=== PATIENT | female | born 1990 | race Caucasian/White ===

== ENCOUNTER → 2016-10-17 | Outpatient (CLI) | payer OTHER ==
[~2016-10-17] MED LIST: /MOM400 PO; ACET50TA PO; COLA100C PO; IBUP600T26 PO; METH0.2T53 PO; OXYC1TAB23 PO; PRENTAB66 PO
[2016-10-17 13:32] LABS: BASO % 0.4 % (0.0-1.0); EOS # 0.2 K/mm3 (0.0-0.50); EOS % 3.1 % (0.0-3.0); LARGE UNSTAINED CELL # 0.1 K/mm3 (0.0-0.4); LARGE UNSTAINED CELL % 1.1 % (0.0-4.0); LYMPH # 1.5 K/mm3 (1.5-6.5); LYMPH % 17.3 % (24.0-44.0); MEAN CORPUSCULAR HEMOGLOBIN 30.4 pg (27.0-33.0); MEAN CORPUSCULAR HGB CONC 33.4 g/dl (32.0-36.5); MEAN CORPUSCULAR VOLUME 90.9 fl (80.0-96.0); MONO # 0.3 K/mm3 (0.0-0.8); MONO % 4.1 % (0.0-5.0); NEUTROPHILS # 6.1 K/mm3 (1.8-7.7); PLATELET COUNT, AUTOMATED 255 k/mm3 (150-450); RED CELL DISTRIBUTION WIDTH 13.2 % (11.5-14.5); WHITE BLOOD COUNT 8.2 K/mm3 (4.0-10.0)
[2016-10-17 14:17] LABS: HBsAg Prenatal NEGATIVE (NEGATIVE)
[2016-10-17 14:46] LABS: HIV SCREEN CENTAUR NEGATIVE (NEGATIVE)
== END ==
LOC: M SMT 10:39
PROVIDERS: ATTEND Advanced Practice Midwife
DX: Z34.81 Encounter for supervision of other normal pregnancy, first trimester (principal)

== ENCOUNTER → 2016-11-14 | Outpatient (REF) | payer OTHER ==
[~2016-11-14] MED LIST changes: +AUGM875T27 PO; -COLA100C PO; +COLA100C3 PO; +PREN1TAB11 PO
== END ==
LOC: M LAB REF 13:02
PROVIDERS: ATTEND Advanced Practice Midwife
DX: Z34.82 Encounter for supervision of other normal pregnancy, second trimester (principal); Z36 Encounter for antenatal screening of mother; Z3A.00 Weeks of gestation of pregnancy not specified

== ENCOUNTER 2016-11-17 12:39 | Emergency (ER) | payer OTHER ==
[~2016-11-17] VITALS: Ht 177.8 cm; Wt 74.4 kg
[~2016-11-17 12:39] MED LIST changes: -AUGM875T27 PO; -PREN1TAB11 PO
[2016-11-17 12:40] VITALS: BP 121/69
[2016-11-17] MEDS ORDERED: PREN1TAB11 PO (12:49)
[2016-11-17] MEDS ORDERED: ADACEL/BOOSTRIX VACCINE (DIPHTH/PERTUSS/ACELL/TETANUS)0.5ML SYR (90715) IM ONE (13:15)
[2016-11-17] MEDS ORDERED: AUGM875T27 PO (13:24)
== END 2016-11-17 13:30 | disposition home or self-care (01) ==
LOC: M ED 13:16
DX: S61.215A Laceration without foreign body of left ring finger without damage to nail, initial encounter (principal); W45.8XXA Other foreign body or object entering through skin, initial encounter; Y92.89 Other specified places as the place of occurrence of the external cause; Y93.G1 Activity, food preparation and clean up; Y99.0 Civilian activity done for income or pay; O99.332 Smoking (tobacco) complicating pregnancy, second trimester; Z3A.15 15 weeks gestation of pregnancy

== ENCOUNTER → 2016-12-10 | Outpatient (CLI) | payer OTHER ==
[~2016-12-10] MED LIST changes: +AUGM875T27 PO; +PREN1TAB11 PO
--- NOTE | 2016-12-10 10:11 | REP ---
Clinical: Anatomical evaluation. Comparison: None . Findings: Examination demonstrates a single live intrauterine in breech presentation. motion is identified by technologist. Placenta is noted posteriorly and grade zero without evidence for placenta previa or abruption. Amniotic fluid volume is normal. Cervix measures the 3.8 cm in length and appears closed. No evidence for nuchal cord. Single image demonstrates a small septation or synechia along the anterior margin of the uterus. Gestational age by current measurements 18 weeks 1 day with OG 05/12/2017. FHR equals 153 beats per minute. BPD 4.1 cm 18 weeks 3 days HC 15.2 cm 18 weeks 1 day AC 12.9 cm 18 weeks 3 days FL 2.7 cm 18 weeks 1 day HL 2.6 cm 18 weeks 2 days HC/AC ratio 1.18 Estimated weight 233 grams ( 50th percentile). Anatomical assessment demonstrates normal structures including cranium, choroid plexus, cavum, cerebellum/posterior fossa, facial features, lungs, four-chamber heart/ventricular outflow tracts, diaphragm, stomach, cord insertion/three-vessel cord, kidneys/bladder, spine, and extremities. Impression: 1. Single live intrauterine in breech presentation. 2. A thin septation or synechia along the anterior margin of the uterus is identified and may warrant reevaluation. 3. Anatomical assessment is complete and normal. Signed by Chaim Alfaro MD 12/10/2016 10:03 A
== END ==
LOC: M SMT 08:57
PROVIDERS: ATTEND Advanced Practice Midwife
DX: O32.1XX0 Maternal care for breech presentation, not applicable or unspecified (principal); Z36 Encounter for antenatal screening of mother; Z3A.18 18 weeks gestation of pregnancy; N85.6 Intrauterine synechiae; O26.892 Other specified pregnancy related conditions, second trimester

== ENCOUNTER → 2017-01-14 | Outpatient (CLI) | payer OTHER ==
[2017-01-14 13:29] LABS: BASO # 0.1 K/mm3 (0.0-0.2); BASO % 0.7 % (0.0-1.0); EOS # 0.4 K/mm3 (0.0-0.50); EOS % 4.2 % (0.0-3.0); LARGE UNSTAINED CELL # 0.1 K/mm3 (0.0-0.4); LARGE UNSTAINED CELL % 0.8 % (0.0-4.0); LYMPH # 1.6 K/mm3 (1.5-6.5); LYMPH % 15.6 % (24.0-44.0); MEAN CORPUSCULAR HEMOGLOBIN 31.6 pg (27.0-33.0); MEAN CORPUSCULAR HGB CONC 33.7 g/dl (32.0-36.5); MEAN CORPUSCULAR VOLUME 93.9 fl (80.0-96.0); MONO # 0.4 K/mm3 (0.0-0.8); MONO % 4.5 % (0.0-5.0); NEUTROPHILS # 7.1 K/mm3 (1.8-7.7); NEUTROPHILS % 74.2 % (36.0-66.0); PLATELET COUNT, AUTOMATED 225 k/mm3 (150-450); RED CELL DISTRIBUTION WIDTH 12.6 % (11.5-14.5); WHITE BLOOD COUNT 9.6 K/mm3 (4.0-10.0)
[2017-01-14 15:11] LABS: THYROXINE (T4) 14.5 UG/DL (4.5-12.0)
== END ==
LOC: M SMT 09:00
PROVIDERS: ATTEND Advanced Practice Midwife
DX: R53.83 Other fatigue (principal)

== ENCOUNTER → 2017-02-12 | Outpatient (CLI) | payer OTHER ==
[~2017-02-12] MED LIST changes: -AUGM875T27 PO; +AUGM875T28 PO; -COLA100C3 PO; +COLA100C5 PO; +IBUP-1022 PO; +PERC5TAB12 PO
[2017-02-12 13:15] LABS: MEAN CORPUSCULAR HEMOGLOBIN 31.1 pg (27.0-33.0); MEAN CORPUSCULAR HGB CONC 33.5 g/dl (32.0-36.5); MEAN CORPUSCULAR VOLUME 92.8 fl (80.0-96.0); RED CELL DISTRIBUTION WIDTH 12.6 % (11.5-14.5); WHITE BLOOD COUNT 9.5 K/mm3 (4.0-10.0)
== END ==
LOC: M SMT 08:39
PROVIDERS: ATTEND Advanced Practice Midwife
DX: Z34.82 Encounter for supervision of other normal pregnancy, second trimester (principal); Z36 Encounter for antenatal screening of mother; Z3A.00 Weeks of gestation of pregnancy not specified

== ENCOUNTER → 2017-04-10 | Outpatient (REF) | payer OTHER | LOC: M LAB REF 13:07 | PROVIDERS: ATTEND Advanced Practice Midwife | DX: Z34.83 Encounter for supervision of other normal pregnancy, third trimester (principal); Z36 Encounter for antenatal screening of mother; Z3A.00 Weeks of gestation of pregnancy not specified ==

== ENCOUNTER → 2017-04-17 | Outpatient (REF) | payer OTHER | LOC: M LAB REF 12:40 | PROVIDERS: ATTEND Advanced Practice Midwife | DX: Z34.83 Encounter for supervision of other normal pregnancy, third trimester (principal); Z36 Encounter for antenatal screening of mother; Z3A.00 Weeks of gestation of pregnancy not specified ==

== ENCOUNTER 2017-04-22 20:24 | Emergency (ER) | payer OTHER ==
[~2017-04-22] VITALS: Ht 177.8 cm; Wt 90.9 kg
[~2017-04-22 20:24] MED LIST changes: -PERC5TAB12 PO
[2017-04-22] MEDS ORDERED: PERCOCET 5MG/325MG TAB PO ONE (21:30)
[2017-04-22] MEDS ORDERED: OXYCODONE/APAP 5MG/325MG(BULK FOR ED) 1 TABLET PO ONE (23:00)
[2017-04-22] MEDS ORDERED: PERC5TAB12 PO (23:02)
[2017-04-22 23:24] VITALS: BP 139/74
== END 2017-04-22 23:25 | disposition home or self-care (01) ==
LOC: M ED 20:24
DX: T23.291A Burn of second degree of multiple sites of right wrist and hand, initial encounter (principal); T31.0 Burns involving less than 10% of body surface; X10.2XXA Contact with fats and cooking oils, initial encounter; Y92.89 Other specified places as the place of occurrence of the external cause; Y93.89 Activity, other specified; Y99.8 Other external cause status; F17.210 Nicotine dependence, cigarettes, uncomplicated; Z79.2 Long term (current) use of antibiotics

== ENCOUNTER 2017-05-01 11:01 | Inpatient (IN) | payer OTHER ==
[2017-05-01] VITALS (9 sets, daily range): BP systolic 124–141; BP diastolic 59–97
[~2017-05-01] VITALS: Ht 177.8 cm; Wt 90.1 kg
[~2017-05-01 11:01] MED LIST changes: +PERC5TAB12 PO
[2017-05-01] MEDS ORDERED: BUTORPHANOL 2 MG/ML INJ (J0595) IV ONE (12:15)
[2017-05-01] MEDS ORDERED: PROMETHAZINE INJ 25 MG/ML VIAL (J2550) IV ONE (12:15)
[2017-05-01] MEDS ORDERED: OXYTOCIN 30 UNITS IN 0.9% NaCl 500ML IV BAG (J2590) As Ordered ONE (12:21)
--- NOTE | 2017-05-01 12:28 | HPE ---
DATE OF ADMISSION: 05/01/2017 Elena is a 27-year-old, 4, para 2-0-1-2, at 38-5/7 weeks gestation with an expected date of confinement (EDC) of 05/10/2017 based on first trimester ultrasound. She presents to labor and delivery today with onset of uncomfortable contractions that are about every 2-3 minutes. She does report bloody show. Denies leakage of fluid. Fetus has been active. care was initiated at [facility] in the second trimester. course complicated by tobacco use during and amniotic band noted at some point in an ultrasound was normal anatomy scan. OBSTETRIC HISTORY: May 2011 at 41 weeks gestation, spontaneous vaginal delivery of a 7 pound 2 ounce male. June 2012 at 39 weeks gestation, normal spontaneous vaginal delivery for a 7 pound 13 ounce male. April 2016, at 6 weeks, spontaneous . OB LABS: Blood type A postive. Antibody screen negative. Rubella immune. VDRL nonreactive. Urine culture positive for Staph epididymis. Hepatitis B surface antigen negative. HIV negative. Hepatitis C antibody nonreactive. Gonorrhea and chlamydia negative. She declined genetic serum screening markers. Gestational diabetic screening 112. GBS is negative. Followup urine cultures demonstrated no growth. PAST MEDICAL HISTORY: 1. Abnormal Pap smear. 2. Varicose veins. SURGERIES: None. FAMILY HISTORY: Hypertension. SOCIAL HISTORY: The patient is single. Father of the baby is at bedside and supportive. She is a smoker, reports smoking three cigarettes a day. Denies alcohol and drug use. No history of any sexually transmitted infections. ALLERGIES: No known drug allergies. CURRENT MEDICATIONS: Include vitamin. OBJECTIVE: Temperature 98.6, pulse 94, respirations 18, blood pressure (BP) 131/81. heart rate is 140 with moderate variability, positive accelerations, positive occasional variable deceleration, bryce every 2-3 minutes. They palpate strong. Sterile vaginal exam performed by Ann Bentley RN: 3 cm dilated, 90% effaced, station not reported, bulging bag of water. Abdomen is gravid. Estimated weight 7-1/2 to 8 pounds. Cephalic presentation. ASSESSMENT: Intrauterine at 38-5/7 weeks. heart rate category II. Active labor. PLAN: Admit the patient to labor and delivery. The patient has requested IV pain medication to cope with her labor. Labs as ordered. Out of bed ad verena. I do anticipate a spontaneous vaginal delivery. MTDD
[2017-05-01 12:59] LABS: MEAN CORPUSCULAR HEMOGLOBIN 27.5 pg (27.0-33.0); MEAN CORPUSCULAR VOLUME 83.3 fl (80.0-96.0); RED CELL DISTRIBUTION WIDTH 13.6 % (11.5-14.5); WHITE BLOOD COUNT 14.5 10^3/uL (4.0-10.0)
[2017-05-01] MEDS ORDERED: OXYTOCIN DRIP 30 UNITS in APPROPRIATE DILUENT 1 EA IV SCH (13:23)
[2017-05-01] MEDS ORDERED: MEASLES,MUMPS,RUBELLA VACCINE INJ (MMR-II) (90707) SC SCH (13:30)
[2017-05-01] MEDS ORDERED: ACETAMINOPHEN 500 MG TAB PO PRN (13:30)
[2017-05-01] MEDS ORDERED: DIBUCAINE 1% OINTMENT 30GM TOP PRN (13:30)
[2017-05-01] MEDS ORDERED: RHOGAM 300 MCG (1500 IU) INJ (J2790) IM SCH (13:30)
[2017-05-01] MEDS ORDERED: DOCUSATE SODIUM 100 MG CAP PO PRN (13:30)
[2017-05-01] MEDS ORDERED: METHYLERGONOVINE MALEATE 0.2 MG TAB PO PRN (13:30)
--- NOTE | 2017-05-01 13:54 | DN ---
DATE: 05/01/2017 Elena is a 27-year-old, 4, para 3-0-1-3 now, who was admitted to labor and delivery in active labor. She progressed rapidly through her labor. She coped with her labor physiologically. She had assisted rupture of membranes at 1222 for a moderate amount of meconium stained fluid. She progressed to full dilation at 1239. She pushed to a normal spontaneous vaginal delivery of a live female infant in left occiput anterior (BURTON) position with restitution to left occiput transverse (LOT) position at 1246. There was a nuchal cord times one loose that was reduced manually at the time of delivery. Shoulders delivered with gentle downward traction and the corpus spontaneously followed. The was placed on the maternal abdomen. Mouth and nares were bulb suctioned. The cord was clamped times two and cut by the father of the baby. [employer] Installer, Dr. Lyon, arrived to the room for evaluation of the due to meconium stained fluid. The was taken to the warmer for evaluation. Cord blood was obtained. A spontaneous expulsion of an intact placenta with three-vessel cord by Isaac mechanism was at 1253. Uterine hemostasis achieved with IV Pitocin rapid infusion and uterine fundal massage. Estimated blood loss 300 mL. Perineum and vagina were inspected and noted to have bilateral labial lacerations. The left labial laceration was repaired with one interrupted suture with #3-0 Rapide. The female weighed 6 pounds 9 ounces, 2980 grams, 9 and 9. Mom plans to bottle feed the infant. The family have named their daughter, Em. This delivery was performed by Joselyn Elizondo, student nurse cook larder, under my direct supervision. At the close of delivery, lap counts, needle counts and instrument counts were correct and verified.
[2017-05-01] MEDS: IBUPROFEN 800 MG TAB PO PRN ×2 (14:26→23:26)
[2017-05-02 05:59] VITALS: BP 118/56
[2017-05-02] MEDS ORDERED: PRENATAL VITAMINS CHEWABLE TABLET PO SCH (09:00)
[2017-05-02 09:56] VITALS: BP 121/58
== END 2017-05-02 16:45 | disposition home or self-care (01) | DRG 560 ==
LOC: M LDO 11:01 → M LDI 11:29 → M OBS 15:01
PROVIDERS: ADMIT Advanced Practice Midwife; ATTEND Advanced Practice Midwife
PROC: 10E0XZZ Delivery of Products of Conception, External Approach (ICD-10-PCS; principal; 2017-05-01)
PROC: 0HQ9XZZ Repair Perineum Skin, External Approach (ICD-10-PCS; 2017-05-01)
PROC: 10907ZC Drainage of Amniotic Fluid, Therapeutic from Products of Conception, Via Natural or Artificial Opening (ICD-10-PCS; 2017-05-01)
DX: O62.3 Precipitate labor (principal); Z3A.38 38 weeks gestation of pregnancy; O77.0 Labor and delivery complicated by meconium in amniotic fluid; F17.210 Nicotine dependence, cigarettes, uncomplicated; O69.81X0 Labor and delivery complicated by cord around neck, without compression, not applicable or unspecified; O70.0 First degree perineal laceration during delivery; Z37.0 Single live birth; O99.334 Smoking (tobacco) complicating childbirth

== ENCOUNTER → 2017-06-11 | Outpatient (REF) | payer OTHER | LOC: M LAB REF 21:24 | PROVIDERS: ATTEND Physician Assistant Medical | DX: R30.0 Dysuria (principal) ==

== ENCOUNTER → 2019-09-16 | Outpatient (REF) | payer OTHER ==
[~2019-09-16] MED LIST changes: -/MOM400 PO; -ACET50TA PO; +MAPA500T17 PO; +MILK10SU PO
[2019-09-16 12:43] LABS: INFLUENZA A AMPLIFICATION NEGATIVE (NEGATIVE); INFLUENZA B AMPLIFICATION NEGATIVE (NEGATIVE)
== END ==
LOC: M LAB REF 11:07
PROVIDERS: ATTEND Physician Assistant
DX: J11.1 Influenza due to unidentified influenza virus with other respiratory manifestations (principal)

== ENCOUNTER → 2020-03-18 | Outpatient (REF) | payer OTHER ==
[~2020-03-18] MED LIST changes: +CEFD1CAP8; +CLEO300C2 PO; +LORT1ELX PO; +PRED20TA; +PRED20TA PO
== END ==
LOC: M LAB REF 13:17
PROVIDERS: ATTEND Physician Assistant
DX: J03.90 Acute tonsillitis, unspecified (principal)

== ENCOUNTER 2020-03-22 09:32 | Emergency (ER) | payer OTHER ==
[~2020-03-22] VITALS: Ht 177.8 cm; Wt 89.0 kg
[~2020-03-22 09:32] MED LIST changes: -CEFD1CAP8; -CLEO300C2 PO; -LORT1ELX PO; -PRED20TA; -PRED20TA PO
[2020-03-22] MEDS ORDERED: CEFD1CAP8 (09:42)
[2020-03-22] MEDS ORDERED: PRED20TA (09:42)
[2020-03-22] MEDS ORDERED: NS 1,000 ML IV ONE (10:00)
[2020-03-22] MEDS ORDERED: CLINDAMYCIN 900 MG in IV 1 EA IV ONE (10:00)
[2020-03-22] MEDS ORDERED: MORPHINE 4 MG/ML 1ML VIAL/SYRINGE (J2270) IV ONE (10:00)
[2020-03-22 10:33] LABS: BASO # 0.1 10^3/uL (0.0-0.2); BASO % 0.4 % (0.0-1.0); EOS # 0.1 10^3/uL (0.0-0.5); EOS % 0.5 % (0.0-3.0); HEMATOCRIT 39.1 % (36.0-47.0); LYMPH # 1.7 10^3/uL (1.5-5.0); LYMPH % 13.7 % (24.0-44.0); MEAN CORPUSCULAR HEMOGLOBIN 29.8 pg (27.0-33.0); MEAN CORPUSCULAR HGB CONC 33.2 g/dl (32.0-36.5); MEAN CORPUSCULAR VOLUME 89.7 fl (80.0-96.0); MONO % 8.2 % (0.0-5.0); NEUTROPHILS # 9.2 10^3/uL (1.5-8.5); NEUTROPHILS % 76.6 % (36.0-66.0); PLATELET COUNT, AUTOMATED 273 10^3/uL (150-450); RED BLOOD COUNT 4.36 10^6/uL (4.00-5.40)
[2020-03-22 11:05] LABS: HCG, SERUM QUALITATIVE NEGATIVE (NEGATIVE)
[2020-03-22] MEDS ORDERED: ISOVUE-370 76% 100ML VIAL As Ordered ONE (11:10)
[2020-03-22] MEDS ORDERED: KETOROLAC 30 MG/ML 1ML VIAL IV ONE (11:15)
[2020-03-22] MEDS ORDERED: methylPREDNISolone 125MG 2ML VIAL IV ONE (11:30)
[2020-03-22] MEDS ORDERED: CETACAINE SPRAY 5GM TOP ONE (13:15)
[2020-03-22] MEDS ORDERED: LIDOCAINE W/EPINEPHRINE 1% 20ML VIAL SC ONE (13:15)
[2020-03-22] MEDS ORDERED: LORT1ELX PO (14:56)
[2020-03-22] MEDS ORDERED: PRED20TA PO (14:56)
[2020-03-22] MEDS ORDERED: CLEO300C2 PO (14:56)
[2020-03-22 15:00] VITALS: BP 126/68
--- NOTE | 2020-04-19 14:28 | REP ---
CONTRAST ENHANCED CT OF THE NECK CLINICAL: Sore throat and right-sided pain. TECHNIQUE: Axial images from the skull base to the thoracic inlet with coronal and sagittal reformations using 100 cc Isovue-370 intravenous contrast material. FINDINGS: There is a 3.5 cm tonsillar/right parapharyngeal abscess along with associated bilateral tonsillar and adenoid inflammatory changes and enlargement with moderate bilateral adenopathy. The swelling and abscess focally causes focal mass effect and narrowing to the adjacent portion of the airway (images 25-43). Vascular structures are symmetric, intact, and normal. The osseous structures are intact and normal. Visualized sinuses demonstrate mucoperiosteal changes suggesting chronic sinus disease involving the maxillary and ethmoid sinuses. Bilateral orbits are symmetric and normal. IMPRESSION: Infectious/inflammatory process including right tonsillar/right parapharyngeal abscess and diffuse bilateral inflammatory adenopathy. Abscess and inflammatory changes cause mass effect on the adjacent soft tissues and focal narrowing to the airway. Findings discussed with Dr. Edmond in the ER. JOY
== END 2020-03-22 15:25 | disposition home or self-care (01) ==
LOC: M ED 09:32
DX: J36 Peritonsillar abscess (principal)
CPT/HCPCS: 42700; 70491; 80047; 84702; 84703; 85025; 86140; 86850; 86900; 86901; 94760; 96365; 96366; 96375; 99284; J1885; J2270; J2930; Q9967

== ENCOUNTER → 2020-04-10 | Outpatient (CLI) | payer OTHER ==
[~2020-04-10] MED LIST changes: +CEFD1CAP8; +CLEO300C2 PO; +LORT1ELX PO; +PRED20TA; +PRED20TA PO
--- NOTE | 2020-04-21 09:34 | REP ---
RIGHT ANKLE SERIES: 4-VIEWS HISTORY: Lateral ankle injury. FINDINGS: Four views of the right ankle demonstrate lateral soft tissue swelling. Ankle mortise is intact. No fracture is visible. Bones, joints, and soft tissues are otherwise unremarkable. IMPRESSION: Lateral soft tissue swelling. No fracture seen. MTDD
== END ==
LOC: M WUC 10:33
PROVIDERS: ATTEND Physician Assistant
DX: M25.571 Pain in right ankle and joints of right foot (principal)

== ENCOUNTER → 2020-04-18 | Outpatient (REF) | payer OTHER, MEDICAID ==
[2020-04-18 13:19] LABS: APPEARANCE, URINE CLEAR (CLEAR); BACTERIA, URINE AUTO NEGATIVE (NEGATIVE); BILIRUBIN, URINE AUTO NEGATIVE (NEGATIVE); BLOOD, URINE BLOOD 1+ (NEGATIVE); COLOR, URINE YELLOW (YELLOW); GLUCOSE, URINE (UA) AUTO NEGATIVE (NEGATIVE); KETONE, URINE AUTO NEGATIVE (NEGATIVE); LEUKOCYTE ESTERASE, URINE AUTO NEGATIVE (NEGATIVE); MUCUS, URINE SMALL (NEGATIVE); NITRITE, URINE AUTO NEGATIVE (NEGATIVE); PROTEIN, URINE AUTO NEGATIVE (NEGATIVE); RBC, URINE AUTO 0 /HPF (0-3); SPECIFIC GRAVITY URINE AUTO 1.024 (1.002-1.035); SQUAMOUS EPITHELIAL CELL UR AU 2 /HPF (0-6); WBC, URINE AUTO 1 /HPF (0-3)
[2020-04-18 17:30] LABS: BASO # 0.1 10^3/uL (0.0-0.2); BASO % 0.9 % (0.0-1.0); EOS # 0.6 10^3/uL (0.0-0.5); HEMATOCRIT 42.2 % (36.0-47.0); HEMOGLOBIN 14.1 g/dl (12.0-15.5); LYMPH # 2.4 10^3/uL (1.5-5.0); LYMPH % 31.5 % (24.0-44.0); MEAN CORPUSCULAR HEMOGLOBIN 29.9 pg (27.0-33.0); MEAN CORPUSCULAR HGB CONC 33.4 g/dl (32.0-36.5); MEAN CORPUSCULAR VOLUME 89.6 fl (80.0-96.0); MONO # 0.6 10^3/uL (0.0-0.8); NEUTROPHILS # 3.8 10^3/uL (1.5-8.5); NEUTROPHILS % 50.5 % (36.0-66.0); PLATELET COUNT, AUTOMATED 319 10^3/uL (150-450); RED BLOOD COUNT 4.71 10^6/uL (4.00-5.40); WHITE BLOOD COUNT 7.5 10^3/uL (4.0-10.0)
[2020-04-18 17:42] LABS: ALBUMIN 3.6 GM/DL (3.2-5.2); ALT/SGPT 19 U/L (12-78); BILIRUBIN,TOTAL 0.8 MG/DL (0.2-1.0); BLOOD UREA NITROGEN 15 MG/DL (7-18); CALCIUM LEVEL 9.2 MG/DL (8.5-10.1); CARBON DIOXIDE LEVEL 28 MEQ/L (21-32); CHLORIDE LEVEL 107 MEQ/L (98-107); CHOLESTEROL LEVEL 175 MG/DL (<200); CHOLESTEROL RISK RATIO 3.301 (<5); CREATININE FOR GFR 0.56 MG/DL (0.55-1.30); FREE T4 1.05 NG/DL (0.76-1.46); GLOMERULAR FILTRATION RATE > 60.0 (>60); GLUCOSE, FASTING 87 MG/DL (70-100); HDL CHOLESTEROL 53 MG/DL (>40); LDL CHOLESTEROL 88 MG/DL (<100); NON-HDL-C 122 MG/DL; POTASSIUM SERUM 4.4 MEQ/L (3.5-5.1); SODIUM LEVEL 138 MEQ/L (136-145); TOTAL 25(OH) VITAMIN D 25.6 NG/ML (30.0-100.0); TOTAL PROTEIN 7.2 GM/DL (6.4-8.2); TRIGLYCERIDES LEVEL 168 MG/DL (<150)
[2020-04-18 18:32] LABS: HEMOGLOBIN A1c 4.8 %
== END ==
LOC: M LAB REF 12:27
PROVIDERS: ATTEND Nurse Practitioner Family
DX: Z13.29 Encounter for screening for other suspected endocrine disorder (principal); F17.200 Nicotine dependence, unspecified, uncomplicated; Z13.9 Encounter for screening, unspecified

== ENCOUNTER → 2020-08-25 | Outpatient (CLI) | payer SELFPAY | LOC: M LABSMTC 10:45 | PROVIDERS: ATTEND Pediatrics | DX: Z20.822 Contact with and (suspected) exposure to COVID-19 (principal) ==

== ENCOUNTER → 2021-04-11 | Outpatient (REF) | payer OTHER, MEDICAID ==
[2021-04-11 12:07] LABS: APPEARANCE, URINE CLEAR (CLEAR); BILIRUBIN, URINE AUTO NEGATIVE (NEGATIVE); BLOOD, URINE BLOOD 1+ (NEGATIVE); COLOR, URINE AMBER (YELLOW); GLUCOSE, URINE (UA) AUTO NEGATIVE (NEGATIVE); KETONE, URINE AUTO NEGATIVE (NEGATIVE); LEUKOCYTE ESTERASE, URINE AUTO 2+ (NEGATIVE); NITRITE, URINE AUTO POSITIVE (NEGATIVE); PROTEIN, URINE AUTO NEGATIVE (NEGATIVE); SPECIFIC GRAVITY URINE AUTO 1.003 (1.002-1.035)
[2021-04-11 12:09] LABS: BACTERIA, URINE AUTO 1+ (NEGATIVE); RBC, URINE AUTO 2 /HPF (0-3); SQUAMOUS EPITHELIAL CELL UR AU 3 /HPF (0-6); WBC, URINE AUTO 19 /HPF (0-3)
== END ==
LOC: M LAB REF 11:40
PROVIDERS: ATTEND Physician Assistant Medical
DX: N39.0 Urinary tract infection, site not specified (principal)

== ENCOUNTER → 2021-07-26 | Outpatient (CLI) | payer OTHER ==
--- NOTE | 2021-07-26 11:01 | REP ---
INDICATION: VARICOSE VIENS. COMPARISON: None. TECHNIQUE: Multiple ultrasonographic images of the deep venous structures of the left lower extremity were obtained from the inguinal ligament to the ankle. Venous compression techniques, color doppler imaging, and augmentation techniques were also obtained where appropriate. As per the ACR guidelines the anterior tibial vein can not be effectively evaluated. Only compression techniques in the calf on the peroneal and posterior tibial veins was attempted/performed. FINDINGS: There is no abnormal echogenic material seen within any of the visualized deep venous structures that would suggest acute thrombosis. Coaptation is unremarkable throughout. Doppler interrogation shows an expected response to respiratory variability and augmentation in the thigh. Compression techniques in the calf showed no abnormality. The color flow images show what appears to be a normal vascular pattern throughout the thigh. Reflux study: Reflux was seen in the common femoral vein. An anterior accessory greater saphenous vein was not identified. Reflux was seen in the greater saphenous vein at the saphenous femoral junction of 8.1 seconds duration the AP dimension of which measured 8 mm. Reflux was seen in the greater saphenous vein at the mid thigh of 9.2 seconds duration the AP dimension of which measured 5.1 mm. Reflux was seen in the greater saphenous vein at the knee of 7.9 seconds duration the AP dimension of which measured 5 mm. No reflux was seen in any portion of the superficial femoral vein. Reflux was seen in the popliteal vein. Reflux was seen in the lesser saphenous vein of 4 seconds duration the AP dimension of which measured 3.8 mm. A network of collateral venous vessels were seen arising from the greater saphenous vein at the mid thigh level and rejoining superior to the knee. IMPRESSION: There is no ultrasonographic evidence of deep venous thrombosis involving any of the visualized deep venous structures of the left lower extremity as described above. Reflux study as described above. <Electronically signed by Sunil Zheng > 07/26/21 [id number]
== END ==
LOC: M RAD 09:30
PROVIDERS: ATTEND Surgery
DX: I83.892 Varicose veins of left lower extremity with other complications (principal)

== ENCOUNTER → 2021-09-18 | Outpatient (REF) | payer OTHER ==
[~2021-09-18] MED LIST changes: -CEFD1CAP8; +CEFD300C41
== END ==
LOC: M SFHCWAGY 12:47
PROVIDERS: ATTEND Obstetrics & Gynecology
DX: Z01.419 Encounter for gynecological examination (general) (routine) without abnormal findings (principal); Z77.9 Other contact with and (suspected) exposures hazardous to health; Z12.4 Encounter for screening for malignant neoplasm of cervix

== ENCOUNTER 2022-01-14 16:42 | Emergency (ER) | payer OTHER ==
[~2022-01-14] VITALS: Ht 177.8 cm; Wt 95.1 kg
[2022-01-14 18:32] LABS: HEMOGLOBIN 13.8 g/dl (12.0-15.5); MEAN CORPUSCULAR HEMOGLOBIN 30.3 pg (27.0-33.0); MEAN CORPUSCULAR HGB CONC 33.7 g/dl (32.0-36.5); MEAN CORPUSCULAR VOLUME 89.9 fl (80.0-96.0); PLATELET COUNT, AUTOMATED 302 10^3/uL (150-450); RED BLOOD COUNT 4.56 10^6/uL (4.00-5.40); WHITE BLOOD COUNT 9.6 10^3/uL (4.0-10.0)
[2022-01-14] MEDS ORDERED: MULTTAB20 PO (18:42)
[2022-01-14 20:11] VITALS: BP 136/71
== END 2022-01-14 20:23 | disposition home or self-care (01) ==
LOC: M ED 16:42
DX: O03.9 Complete or unspecified spontaneous abortion without complication (principal); Z3A.08 8 weeks gestation of pregnancy; Z87.891 Personal history of nicotine dependence

== ENCOUNTER → 2022-08-22 | Outpatient (CLI) | payer OTHER ==
[~2022-08-22] MED LIST changes: +MULTTAB20 PO
[2022-08-22 15:44] LABS: HEMATOCRIT 40.6 % (36.0-47.0); HEMOGLOBIN 13.7 g/dl (12.0-15.5); MEAN CORPUSCULAR HEMOGLOBIN 30.4 pg (27.0-33.0); MEAN CORPUSCULAR HGB CONC 33.7 g/dl (32.0-36.5); PLATELET COUNT, AUTOMATED 306 10^3/uL (150-450); RED BLOOD COUNT 4.51 10^6/uL (4.00-5.40); WHITE BLOOD COUNT 10.2 10^3/uL (4.0-10.0)
[2022-08-22 16:23] LABS: HIV 1&2 SCREEN CENTAUR NEGATIVE (NEGATIVE)
[2022-08-22 17:06] LABS: GC DNA AMPLIFICATION NEGATIVE (NEGATIVE)
== END ==
LOC: M PLALAB 12:31
PROVIDERS: ATTEND Obstetrics & Gynecology
DX: Z34.91 Encounter for supervision of normal pregnancy, unspecified, first trimester (principal)

== ENCOUNTER → 2022-10-30 | Outpatient (CLI) | payer OTHER | LOC: M WHC 08:41 | PROVIDERS: ATTEND Specialist | DX: Z34.82 Encounter for supervision of other normal pregnancy, second trimester (principal) ==

== ENCOUNTER → 2022-11-30 | Outpatient (CLI) | payer OTHER | LOC: M WHC 09:37 | PROVIDERS: ATTEND Advanced Practice Midwife | DX: Z34.83 Encounter for supervision of other normal pregnancy, third trimester (principal) ==

== ENCOUNTER → 2022-12-06 | Outpatient (CLI) | payer OTHER ==
[2022-12-06 13:34] LABS: HEMATOCRIT 34.4 % (36.0-47.0); HEMOGLOBIN 11.6 g/dl (12.0-15.5); MEAN CORPUSCULAR HEMOGLOBIN 30.5 pg (27.0-33.0); MEAN CORPUSCULAR HGB CONC 33.7 g/dl (32.0-36.5); MEAN CORPUSCULAR VOLUME 90.5 fl (80.0-96.0); PLATELET COUNT, AUTOMATED 262 10^3/uL (150-450)
== END ==
LOC: M PLALAB 11:02
PROVIDERS: ATTEND Advanced Practice Midwife
DX: Z34.83 Encounter for supervision of other normal pregnancy, third trimester (principal)

== ENCOUNTER → 2023-02-06 | Outpatient (REF) | payer OTHER | LOC: M SFHCWAGY 15:17 | PROVIDERS: ATTEND Obstetrics & Gynecology | DX: Z34.83 Encounter for supervision of other normal pregnancy, third trimester (principal) ==

== ENCOUNTER → 2023-11-04 | Outpatient (REF) | payer OTHER, MEDICAID ==
[~2023-11-04] MED LIST changes: +CEFD1CAP9; -CEFD300C41
[2023-11-04 19:10] LABS: HEMOGLOBIN A1c 4.7 % (4.0-6.0)
[2023-11-04 19:15] LABS: CHOLESTEROL RISK RATIO 3.41 (<5); HDL CHOLESTEROL 50.3 MG/DL (>40); LDL CHOLESTEROL 75.9 MG/DL (<100); NON-HDL-C 121.7 MG/DL
[2023-11-04 19:18] LABS: THYROID STIMULATING HORMONE 1.66 uIU/ML (0.55-4.78)
== END ==
LOC: M LAB REF 18:15
PROVIDERS: ATTEND Pediatrics
DX: E66.9 Obesity, unspecified (principal)

== ENCOUNTER → 2023-11-19 | Outpatient (CLI) | payer OTHER | LOC: M RAD 15:22 | PROVIDERS: ATTEND Pediatrics | DX: R22.2 Localized swelling, mass and lump, trunk (principal) ==